=== PATIENT | female | born 2000 | race Caucasian/White ===

== ENCOUNTER 2022-07-31 15:54 | Inpatient (IN) | payer MEDICAID, OTHER, SELFPAY ==
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
[2022-07-31 16:08] VITALS: BP 149/81; PULSE 92; RESP 16; TEMP 36.8; O2SAT 97; BMI 29.9
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
[2022-07-31 17:22] VITALS: BP 109/71; PULSE 88; RESP 16; TEMP 36.4; O2SAT 98
[2022-07-31 17:39] LABS: MANUAL DIFF FLAG NO
[2022-07-31 17:42] LABS: Basophils Absolute Auto 0.1 X10*3/uL (0.0-0.2); Basophils Percent Auto 0.7 % (0-2); Eosinophils Absolute Auto 0.2 X10*3/uL (0.0-0.4); Eosinophils Percent Auto 2.2 % (0-4); Hematocrit 38.7 % (37.0-47.0); Hemoglobin 13.9 g/dl (12.0-16.0); Imm Gran Abs Auto 0.03 X10*3/uL (0.00-0.03); Imm Gran Pct Auto 0.3 % (0.0-0.4); Lymphocytes Absolute Auto 2.9 X10*3/uL (1.2-4.9); Lymphocytes Percent Auto 31.3 % (20-40); Mean Corpuscular HGB Conc 35.9 g/dl (31.0-35.0); Mean Corpuscular Volume 83.6 fL (80.0-98.0); Mean Platelet Volume 9.3 fL (9.4-12.3); Monocytes Absolute Auto 0.5 X10*3/uL (0.1-1.2); Monocytes Percent Auto 5.8 % (2-11); Neutrophils Absolute Auto 5.6 x10*3/uL (2.0-8.3); Neutrophils Percent Auto 59.7 % (45-73); Platelet Count 276 X10*3/uL (160-400); Red Blood Count 4.63 X10*6/uL (4.20-5.50); Red Cell Distribution Width 11.6 % (11.0-16.0); White Blood Count 9.3 X10*3/uL (4.8-10.8)
[2022-07-31 17:53] LABS: Amphetamine Screen Urine Not Detected (Not Detect); Barbiturates, Urine Not Detected (Not Detect); Benzodiazepines Screen Urine Not Detected (Not Detect); Cannabinoid Screen Urine POSITIVE (Not Detect); Cocaine Screen Urine Not Detected (Not Detect); Fentanyl, urine Not Detected (Not Detect); Opiate Screen Urine Not Detected (Not Detect); Phencyclidine Screen Urine Not Detected (Not Detect)
[2022-07-31 18:00] LABS: Alanine Aminotransferase < 6 U/L (0-31); Albumin Level 4.2 g/dL (3.5-5.0); Alkaline Phosphatase 94 U/L (39-117); Anion Gap 12 (12-20); Aspartate Amino Transferase 13 U/L (5-31); Bilirubin Total 0.3 mg/dL (0.0-1.0); Blood Urea Nitrogen 8 mg/dL (9-16); Calcium 9.2 mg/dL (8.4-10.2); Carbon Dioxide 26 mmol/L (22-29); Chloride 106 mmol/L (96-108); Creatinine Clr Calc Pharmacy 103.8; Estimated Glomerular Filt Rate > 60; Ethanol < 10 mg/dL; Glucose Random 92 mg/dL (60-115); Potassium 3.9 mmol/L (3.3-5.1); Sodium 140 mmol/L (135-145); Total Protein 6.5 g/dL (6.5-8.0)
--- NOTE | 2022-07-31 18:19 | PC.NURSE ---
[facility] smart sheet sent.
[2022-08-01 01:41] LABS: Influenza A PCR NEGATIVE (Negative); Influenza B PCR NEGATIVE (Negative); Resp Syncy Virus RNA Qual PCR NEGATIVE (Negative); SARS COV2 PCR INHOUSE NEGATIVE (Negative)
--- NOTE | 2022-08-01 06:18 | PC.NURSE ---
[facility]N consult completed at this time.
[2022-08-01 07:21] LABS: UPreg QC Valid YES; Urine Pregnancy NEGATIVE (NEGATIVE)
--- NOTE | 2022-08-01 11:20 | PC.NURSE ---
Pt awake at this time. In behavioral control. Denies complaints.
[2022-08-01 11:34] VITALS: BP 146/102; PULSE 73; RESP 16; TEMP 36.4; O2SAT 96
[2022-08-01] MEDS: Albuterol Sulfate 90 MCG 8 GM INHALER 2 PUFF INHALE (12:09)
[2022-08-01 15:00] VITALS: RESP 18
[2022-08-01 17:30] VITALS: BP 118/82; PULSE 70; RESP 18; TEMP 37.2; O2SAT 100
[2022-08-01 23:20] VITALS: BP 121/74; PULSE 67; RESP 18; TEMP 36.6; O2SAT 98
[2022-08-02] MEDS: hydrOXYzine HCL 25 MG TABLET PO (01:42)
[2022-08-02 02:47] VITALS: BMI 29.5
[2022-08-02 06:00] VITALS: BP 114/69; PULSE 86; RESP 18; TEMP 36.4; O2SAT 94
[2022-08-02 09:01] LABS: Estimated Average Glucose 94 mg/dL; Hemoglobin A1c % 4.9 %
[2022-08-02 09:17] LABS: Cholesterol 136 mg/dL; Free T4 (Free Thyroxine) 1.19 ng/dL (0.71-1.85); HDL Cholesterol 30 mg/dL; LDL Cholesterol Calculated 85 mg/dl; Thyroid Stimulating Hormone 1.03 uIU/mL (0.32-4.0); Triglycerides 106 mg/dL
[2022-08-02 09:30] LABS: Vitamin B12 398 pg/mL (200-900)
[2022-08-02] MEDS: Albuterol Sulfate 90 MCG 8 GM INHALER 2 PUFF INHALE ×2 (09:42→17:18)
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
[2022-08-02] MEDS: cloNIDine HCL 0.1 MG TABLET 0.05 MG PO (15:38)
[2022-08-02 23:15] VITALS: BP 120/71; PULSE 88; O2SAT 97
[2022-08-02] MEDS: cloNIDine HCL 0.1 MG TABLET PO (23:32)
[2022-08-03] MEDS: Albuterol Sulfate 90 MCG 8 GM INHALER 2 PUFF INHALE ×2 (00:18→10:58)
[2022-08-03] MEDS: hydrOXYzine HCL 25 MG TABLET PO ×2 (00:19→23:08)
--- NOTE | 2022-08-03 01:59 | P.PNPSI_ITS ---
Subjective Subjective Date of Service: 08/03/22 Reason For Visit: Crisis Interim History: Spoke with pt, met with team. Says the clonidine definitely helped me sleep, did not have nightmares, unable to tolerate AM dose because BP low. Has hx of SSRI trials but felt numb, unable to recall names of meds, prozac sounds familiar. Denies irritability. Discussed her back pain and spasming. Says the pain can be so bad that she is unable to focus on conversations, denies benefit on NSAIDs or tylenol. Needs PCP referral. Feels safe. Denies SI/SIB/HI. Mental Status Exam Mental Status Exam Narrative: calm, cooperative.? dressed in street clothes.? no PMA/PMR.? no tics until the end of the interview, when she made a grasping motion at MD several times while smiling (she had previously described such a motion as one of her tics).? cooperative.? speech incr in amount and rate, nml loudness and prosody, decr latency.? thoughts linear and logical in response to questions, otherwise digr essive.? affect full range, normo-intense, non-labile, not consistent with context or stated mood.? mood bored.? anxiety.? wish i was . ? endorses SI with plan to jump from bridge.? denies HI/AVH. Diagnostics Vital Signs (24Hr): Vital Signs - 24 hr 08/02/22 06:00 08/02/22 23:15 Temperature 97.6 F Pulse Rate 86 88 Respiratory Rate 18 Blood Pressure 114/69 120/71 Pulse Oximetry 94 97 Oxygen Delivery Method Room Air Room Air BMI result Body Mass Index 29.5 Labs Results: 07/31/22 17:31 07/31/22 17:31 Labs: Laboratory Results - last 48 hr 07/31/22 08/02/22 08/02/22 17:36 08:32 08:32 Estimat Average Glucose 94 Hemoglobin A1c % 4.9 Magnesium 2.0 Triglycerides 106 Cholesterol 136 LDL Cholesterol, Calc 85 HDL Cholesterol 30 Vitamin B12 Folate TSH 1.03 Free T4 1.19 Urine Test NEGATIVE 08/02/22 08:32 Estimat Average Glucose Hemoglobin A1c % Magnesium Triglycerides Cholesterol LDL Cholesterol, Calc HDL Cholesterol Vitamin B12 398 Folate 12.0 TSH Free T4 Urine Test Medications Medications Current Medications Acetaminophen (Acetaminophen 325 Mg Tablet) 650 mg PO Q6H PRN PRN Reason: Headache/Pain Mild Scale (1-3) Al Hydroxide/Mg Hydroxide (Magnesium Hydrox/Alum Hydrox 30 Ml Oral.Susp) 30 ml PO Q6H PRN PRN Reason: Heartburn/Nausea Albuterol Sulfate (Albuterol Sulfate 90 Mcg 8 Gm Inhaler) 2 puff INHALE Q4H PRN PRN Reason: wheezing Last Admin: 08/03/22 00:18 Dose: 2 puff Clonidine HCl (Clonidine Hcl 0.1 Mg Tablet) 0.05 mg PO DAILY@0900,1500 [facility]; Protocol Last Admin: 08/02/22 15:38 Dose: 0.05 mg Clonidine HCl (Clonidine Hcl 0.1 Mg Tablet) 0.1 mg PO BEDTIME [facility]; Protocol Last Admin: 08/02/22 23:32 Dose: 0.1 mg Hydroxyzine HCl (Hydroxyzine Hcl 25 Mg Tablet) 25 mg PO Q6H PRN PRN Reason: Anxiety Last Admin: 08/03/22 00:19 Dose: 25 mg Magnesium Hydroxide (Milk Of Magnesia 30 Ml Oral.Susp) 30 ml PO DAILY PRN PRN Reason: Constipation Trazodone HCl (Trazodone Hcl 50 Mg Tablet) 50 mg PO BEDTIME PRN PRN Reason: Insomnia Allergies Allergies Allergy/AdvReac Type Severity Reaction Status Date / Time No Known Allergies Allergy Verified 07/31/22 16:12 Assessment & Plan Assessment & Plan (1) Suicidal ideation: Status: Acute Code(s): R45.851 - Suicidal ideations (2) Depression: Status: Acute Code(s): F32.A - Depression, unspecified (3) Chronic post-traumatic stress disorder (PTSD): Status: Acute Code(s): F43.12 - Post-traumatic stress disorder, chronic Plan discussed SSRIs, wellbutrin, clonidine. pt agrees to trial of clonidine for anxiety/insomnia/nightmares to start at 0.05/0.05/0.1. titrate as indicated, T/C starting SSRI over weekend if clonidine well-tolerated. 08/03 Start lexapro 5 mg daily for sx of anxiety, reviewed risks and benefits including black box warning I spent minutes with the patient and/or on the patient floor today, greater than?50% of which was spent counseling/coordinating care. Patient educated on: medication risk/benefits and therapeutic strategies Reason for contiued inpatient stay Substantial Risk for: med/psych decompensation
[2022-08-03 09:30] VITALS: BP 80/63; PULSE 65; TEMP 36.5; O2SAT 98
[2022-08-03] MEDS: Escitalopram Oxalate 5 MG TABLET PO (10:59)
[2022-08-03] MEDS: Acetaminophen 325 MG TABLET 650 MG PO (12:10)
[2022-08-03 15:58] VITALS: BP 119/56
[2022-08-03 23:03] VITALS: BP 144/67; PULSE 77; TEMP 36.7; O2SAT 96
[2022-08-03] MEDS: cloNIDine HCL 0.1 MG TABLET PO (23:08)
[2022-08-04 09:44] VITALS: BP 93/56; PULSE 55; RESP 16; TEMP 36.6; O2SAT 96
[2022-08-04 09:45] VITALS: BP 89/51
[2022-08-04] MEDS: Escitalopram Oxalate 5 MG TABLET PO (10:34)
[2022-08-04] MEDS: Albuterol Sulfate 90 MCG 8 GM INHALER 2 PUFF INHALE (10:35)
--- NOTE | 2022-08-04 14:50 | P.PNPSI_ITS ---
Subjective Subjective Date of Service: 08/04/22 Reason For Visit: Crisis Interim History: fresh air break helped, hasnt been taking the clonidine in the day due to BP but has genuinely been helping with sleep, no nightmares, still using benadryl, no SE on lexapro, yesterday was a down day for me, woke up not feeling great. will d/c clonidine in the day, prefers once a day for adherence. Finding groups helpful. anxiety levels not rising. 4 or 5/10. Feels safe. Mental Status Exam Mental Status Exam Narrative: calm, cooperative.? dressed in street clothes.? no PMA/PMR.? no tics until the end of the interview, when she made a grasping motion at MD several times while smiling (she had previously described such a motion as one of her tics).? cooperative.? speech incr in amount and rate, nml loudness and prosody, decr latency.? thoughts linear and logical in response to questions, otherwise digressive.? affect full range, normo-intense, non-labile, not consistent with context or stated mood.? mood bored.? anxiety.? wish i was . ? endorses SI with plan to jump from bridge.? denies HI/AVH. Diagnostics Vital Signs (24Hr): Vital Signs - 24 hr 08/03/22 15:58 08/03/22 23:03 08/04/22 09:44 Temperature 98.1 F 97.8 F Pulse Rate 77 55 Respiratory Rate 16 Blood Pressure 119/56 L 144/67 H 93/56 L Pulse Oximetry 96 96 Oxygen Delivery Method Room Air Room Air 08/04/22 09:45 Temperature Pulse Rate Respiratory Rate Blood Pressure 89/51 L Pulse Oximetry Oxygen Delivery Method BMI result Body Mass Index 29.5 Labs Results: 07/31/22 17:31 07/31/22 17:31 Medications Medications Current Medications Acetaminophen (Acetaminophen 325 Mg Tablet) 650 mg PO Q6H PRN PRN Reason: Headache/Pain Mild Scale (1-3) Last Admin: 08/03/22 12:10 Dose: 650 mg Al Hydroxide/Mg Hydroxide (Magnesium Hydrox/Alum Hydrox 30 Ml Oral.Susp) 30 ml PO Q6H PRN PRN Reason: Heartburn/Nausea Albuterol Sulfate (Albuterol Sulfate 90 Mcg 8 Gm Inhaler) 2 puff INHALE Q4H PRN PRN Reason: wheezing Last Admin: 08/04/22 10:35 Dose: 2 puff Clonidine HCl (Clonidine Hcl 0.1 Mg Tablet) 0.05 mg PO DAILY@0900,1500 [facility]; Protocol Last Admin: 08/04/22 10:19 Dose: Not Given Clonidine HCl (Clonidine Hcl 0.1 Mg Tablet) 0.1 mg PO BEDTIME [facility]; Protocol Last Admin: 08/03/22 23:08 Dose: 0.1 mg Escitalopram Oxalate (Escitalopram Oxalate 5 Mg Tablet) 5 mg PO DAILY GAB Last Admin: 08/04/22 10:34 Dose: 5 mg Hydroxyzine HCl (Hydroxyzine Hcl 25 Mg Tablet) 25 mg PO Q6H PRN PRN Reason: Anxiety Last Admin: 08/03/22 23:08 Dose: 25 mg Magnesium Hydroxide (Milk Of Magnesia 30 Ml Oral.Susp) 30 ml PO DAILY PRN PRN Reason: Constipation Trazodone HCl (Trazodone Hcl 50 Mg Tablet) 50 mg PO BEDTIME PRN PRN Reason: Insomnia Allergies Allergies Allergy/AdvReac Type Severity Reaction Status Date / Time No Known Allergies Allergy Verified 07/31/22 16:12 Assessment & Plan Assessment & Plan (1) Suicidal ideation: Status: Acute Code(s): R45.851 - Suicidal ideations (2) Depression: Status: Acute Code(s): F32.A - Depression, unspecified (3) Chronic post-traumatic stress disorder (PTSD): Status: Acute Code(s): F43.12 - Post-traumatic stress disorder, chronic Plan discussed SSRIs, wellbutrin, clonidine. pt agrees to trial of clonidine for anxiety/insomnia/nightmares to start at 0.05/0.05/0.1. titrate as indicated, T/C starting SSRI over weekend if clonidine well-tolerated. 08/03 Start lexapro 5 mg daily for sx of anxiety, reviewed risks and benefits including black box warning 08/04 increase lexapro to 10 mg on 08/05 for therapeutic dose to treat anxiety, d/c clonidine 0.05 mg QAM and Qnoon due to pt being unable to take due to BP parameters I spent minutes with the patient and/or on the patient floor today, greater than?50% of which was spent counseling/coordinating care. Patient educated on: medication risk/benefits and therapeutic strategies Reason for contiued inpatient stay Substantial Risk for: med/psych decompensation
[2022-08-04] MEDS: Acetaminophen 325 MG TABLET 650 MG PO (17:06)
[2022-08-04 21:53] VITALS: BP 114/53; PULSE 77; RESP 14; TEMP 36.7; O2SAT 99
[2022-08-04] MEDS: cloNIDine HCL 0.1 MG TABLET PO (21:54)
[2022-08-05] MEDS: hydrOXYzine HCL 25 MG TABLET PO ×2 (00:20→11:36)
[2022-08-05] MEDS: Escitalopram Oxalate 10 MG TABLET PO (09:39)
[2022-08-05 09:45] VITALS: BP 111/59; PULSE 59; RESP 16; TEMP 36.6; O2SAT 98
[2022-08-05] MEDS: Albuterol Sulfate 90 MCG 8 GM INHALER 2 PUFF INHALE (11:36)
--- NOTE | 2022-08-05 15:20 | P.PNPSI_ITS ---
Subjective Subjective Date of Service: 08/05/22 Reason For Visit: Crisis Interim History: calm, cooperative. once interview starts, quite harsh, criticizing her care here, saying the only group she derived any benefit from is the one that was reportedly self-organized by patients over the weekend. states meds aren't helping. offers discharge, about which pt is ambivalent, ultimately deciding to stay until tomorrow. only Sx she is reporting is insomnia, stating the nightmares went away with clonidine 0.1 mg at HS. agrees to trial of trazodone 50 QHS tonight. asking for referral to PHP at [facility] and prescriber. no other complaints or requests. per SW, pt stated if she were discharged tomorrow she might as well go out and kill herself. per staff, dep 7 and anxiety 2. ins omnia. social. visible. cheerful. playing games, taking meds. sleeping well. Mental Status Exam Mental Status Exam Narrative: calm, cooperative. dressed in street clothes. no PMA/PMR. no tics. cooperative. speech incr in amount and rate, nml loudness and prosody, decr latency. thoughts linear and variably logical. affect full range, hyper- intense, mod-labile. no SI/HI/AVH expressed. Diagnostics Vital Signs (24Hr): Vital Signs - 24 hr 08/04/22 21:53 08/05/22 09:45 Temperature 98.1 F 97.8 F Pulse Rate 77 59 Respiratory Rate 14 16 Blood Pressure 114/53 L 111/59 L Pulse Oximetry 99 98 Oxygen Delivery Method Room Air Room Air BMI result Body Mass Index 29.5 Labs Results: 07/31/22 17:31 07/31/22 17:31 Medications Medications Current Medications Acetaminophen (Acetaminophen 325 Mg Tablet) 650 mg PO Q6H PRN PRN Reason: Headache/Pain Mild Scale (1-3) Last Admin: 08/04/22 17:06 Dose: 650 mg Al Hydroxide/Mg Hydroxide (Magnesium Hydrox/Alum Hydrox 30 Ml Oral.Susp) 30 ml PO Q6H PRN PRN Reason: Heartburn/Nausea Albuterol Sulfate (Albuterol Sulfate 90 Mcg 8 Gm Inhaler) 2 puff INHALE Q4H PRN PRN Reason: wheezing Last Admin: 08/05/22 11:36 Dose: 2 puff Clonidine HCl (Clonidine Hcl 0.1 Mg Tablet) 0.1 mg PO BEDTIME GAB; Protocol Last Admin: 08/04/22 21:54 Dose: 0.1 mg Escitalopram Oxalate (Escitalopram Oxalate 10 Mg Tablet) 10 mg PO DAILY GAB Last Admin: 08/05/22 09:39 Dose: 10 mg Hydroxyzine HCl (Hydroxyzine Hcl 25 Mg Tablet) 25 mg PO Q6H PRN PRN Reason: Anxiety Last Admin: 08/05/22 11:36 Dose: 25 mg Magnesium Hydroxide (Milk Of Magnesia 30 Ml Oral.Susp) 30 ml PO DAILY PRN PRN Reason: Constipation Trazodone HCl (Trazodone Hcl 50 Mg Tablet) 50 mg PO BEDTIME PRN PRN Reason: Insomnia Trazodone HCl (Trazodone Hcl 50 Mg Tablet) 50 mg PO BEDTIME GAB Allergies Allergies Allergy/AdvReac Type Severity Reaction Status Date / Time No Known Allergies Allergy Verified 07/31/22 16:12 Assessment & Plan Assessment & Plan (1) Suicidal ideation: Status: Acute Code(s): R45.851 - Suicidal ideations (2) Depression: Status: Acute Code(s): F32.A - Depression, unspecified (3) Chronic post-traumatic stress disorder (PTSD): Status: Acute Code(s): F43.12 - Post-traumatic stress disorder, chronic Plan 08/02: discussed SSRIs, wellbutrin, clonidine. pt agrees to trial of clonidine for anxiety/insomnia/nightmares to start at 0.05/0.05/0.1. titrate as indicated, T/C starting SSRI over weekend if clonidine well-tolerated. 08/03: Start lexapro 5 mg daily for sx of anxiety, reviewed risks and benefits including black box warning 08/04: increase lexapro to 10 mg on 08/05 for therapeutic dose to treat anxiety, d/c clonidine 0.05 mg QAM and Qnoon due to pt being unable to take due to BP parameters. 08/05: start trazodone 50 mg QHS. pt agreeing to DC with MD and expressing no safety concerns, then telling SW after that if she leaves tomorrow she might as well kill herself. I spent ___35___ minutes with the patient and/or on the patient floor today, greater than?50% of which was spent counseling/coordinating care. Reason for contiued inpatient stay Substantial Risk for: harm to self, inability to function and rapid decompensation
[2022-08-05 19:43] VITALS: BP 108/61; PULSE 59; RESP 16; TEMP 36.5; O2SAT 98
[2022-08-05] MEDS: traZODone HCL 50 MG TABLET PO (23:48)
[2022-08-06 09:30] VITALS: BP 93/58; PULSE 61; RESP 16; TEMP 36.3; O2SAT 98
[2022-08-06] MEDS: Escitalopram Oxalate 10 MG TABLET PO (09:37)
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
--- NOTE | 2022-08-06 13:54 | PC.NURSE ---
Rhianna is discharged from in care of family. She denies ideation, plan or intent to harm self or others. She denies current physical complaint. She verbalizes understanding of discharge instructions including appointments and medications.
== END 2022-08-06 14:45 | disposition home or self-care (01) | DRG 754 ==
LOC: HO.ED 08-01 17:24 → HO.PADLT16 08-01 19:40
PROVIDERS: Nurse Practitioner Family; Registered Nurse; Admitting Provider Psychiatry & Neurology Psychiatry; Emergency Provider Internal Medicine; Visit Provider Psychiatry & Neurology Psychiatry
DX: F32.A Depression, unspecified (principal); R45.851 Suicidal ideations; F43.12 Post-traumatic stress disorder, chronic; Z20.822 Contact with and (suspected) exposure to COVID-19; Z79.899 Other long term (current) drug therapy
CPT/HCPCS: 0241U; 36415; 80053; 80061; 80307; 81025; 82077; 82607; 82746; 83036; 83735; 84439; 84443; 85025; 99285